=== PATIENT | male | born 1975 | race Hispanic/Latino ===

== ENCOUNTER 2018-07-22 11:45 | Emergency (ER) | payer OTHER ==
[2018-07-22 11:59] VITALS: RESP 20; BMI 33.1
[2018-07-22] MEDS ORDERED: Sodium Chloride 0.9% 1,000 ML IV STA (12:36)
[2018-07-22] MEDS ORDERED: Iohexol 240 (50 ml) PO ONE (12:36)
--- NOTE | 2018-07-22 12:47 | ED PDOC ---
HPI: Abdomen Time Seen by Provider: 07/22/18 12:24 Chief Complaint (Provider): abdominal pain History Per: Patient History/Exam Limitations: no limitations Onset/Duration Of Symptoms: Days (3), Gradual Current Symptoms Are (Timing): Still Present Location Of Pain/Discomfort: LLQ Quality Of Discomfort: Sharp Associated Symptoms: Nausea, Loss Of Appetite, Constipation. denies: Vomiting Exacerbating Factors: None Alleviating Factors: None Additional Complaint(s): 43yo male c/o LLQ pain for several days, sharp, worsening, feels "bloated" and had recent change in bowel habits w constipation after domestic travel. Also taking amoxicillin for sinus infection. Denies fever, vomiting, blood in stool or weakness. No prior hx of similar pain. Past Medical History Reviewed: Historical Data, Nursing Documentation, Vital Signs Vital Signs: Last Vital Signs Temp 97 F L 07/22/18 11:58 Pulse 81 07/22/18 11:58 Resp 20 07/22/18 11:58 BP 120/81 07/22/18 11:58 Pulse Ox 97 07/22/18 11:58 - Medical History PMH: Depression - Surgical History Surgical History: No Surg Hx - Family History Family History: States: Other Other Family History: father w diverticulitis - Social History Current smoker - smoking cessation education provided: No - Home Medications Home Medications: Ambulatory Orders Medication Instructions Recorded Escitalopram [Lexapro] 20 mg PO DAILY 10/04/15 RX: Omeprazole [Prilosec] 40 mg PO DAILY 10/04/15 Zolpidem Tartrate [Ambien Cr] 12.5 mg PO PRN PRN 10/04/15 busPIRone [Buspar] 10 mg PO TID 10/04/15 Oxycodone HCl/Acetaminophen 1 each PO Q6 PRN #15 tablet 10/05/15 [Percocet 5-325 mg Tablet] Sulfamethoxazole/Trimethoprim 1 tab PO BID #19 tab 10/05/15 [Bactrim DS 800 mg-160 mg] Docusate [Colace] 100 mg PO BID PRN #20 cap 07/22/18 RX: Ibuprofen [Motrin Tab] 600 mg PO Q6 PRN #15 tab 07/22/18 RX: Magnesium Citrate [Citrate of 50 ml PO BID PRN #1 bottle 07/22/18 Mag] - Allergies Allergies/Adverse Reactions: Allergies Allergy/AdvReac Type Severity Reaction Status Date / Time No Known Allergies Allergy Verified 06/06/14 23:02 Review of Systems Constitutional: Negative for: Fever, Chills Cardiovascular: Negative for: Chest Pain, Palpitations Respiratory: Negative for: Cough, Shortness of Breath Gastrointestinal: Positive for: Abdominal Pain, Constipation. Negative for: Vomiting, Diarrhea, Melena, Hematochezia, Hematemesis Genitourinary Male: Negative for: Dysuria Musculoskeletal: Negative for: Neck Pain, Back Pain Skin: Negative for: Rash, Lesions, Jaundice Neurological: Negative for: Weakness, Numbness Psych: Negative for: Suicidal ideation Physical Exam - Reviewed Nursing Documentation Reviewed: Yes Vital Signs Reviewed: Yes - Physical Exam Appears: Positive for: Well, Non-toxic, No Acute Distress Head Exam: Positive for: ATRAUMATIC, NORMAL INSPECTION, NORMOCEPHALIC Skin: Positive for: Normal Color, Warm, DRY Eye Exam: Positive for: EOMI, Normal appearance, PERRL ENT: Positive for: Normal ENT Inspection Neck: Positive for: Normal, Painless ROM Cardiovascular/Chest: Positive for: Regular Rate, Rhythm Respiratory: Positive for: CNT, Normal Breath Sounds Pulses-Radial (L): 3+/4+ Pulses-Radial (R): 3+/4+ Gastrointestinal/Abdominal: Positive for: Soft, Tenderness (LLQ tenderness), Other (small umbilical hernia nontender). Negative for: Guarding, Rebound, Hernia, Asicites Back: Positive for: Normal Inspection Extremity: Positive for: Normal ROM Neurologic/Psych: Positive for: Alert, Oriented - Laboratory Results Result Diagrams: 07/22/18 13:10 07/22/18 13:10 - ECG O2 Sat by Pulse Oximetry: 97 Medical Decision Making Medical Decision Making: workup for LLQ abd pain w labs, CT abd pelv r/o diverticulitis, mass, volvulus, vs other labs reviewed and reveal no clinically significant abnormalities CT abd pelv report reviewed, radiologist states epiploic appendigitis, results discussed and Rx for pain and constipation prescribed and need for followup PMD/GI discussed. Disposition - Clinical Impression Clinical Impression: Epiploic appendagitis, Constipation, Abdominal discomfort - Patient ED Disposition Is Patient to be Admitted: No Counseled Patient/Family Regarding: Studies Performed, Diagnosis, Need For Followup, Rx Given - Disposition Referrals: Wilver Monteiro MD [Staff Provider] - Disposition: Routine/Home Disposition Time: 17:00 Condition: STABLE Additional Instructions: Followup with GI doctor if symptoms persist, you will then need further testing. Recommend motrin for pain, use constipation medication as needed. Prescriptions: Docusate [Colace] 100 mg PO BID PRN #20 cap PRN Reason: Constipation RX: Ibuprofen [Motrin Tab] 600 mg PO Q6 PRN #15 tab PRN Reason: Pain, Moderate (4-7) RX: Magnesium Citrate [Citrate of Mag] 50 ml PO BID PRN #1 bottle PRN Reason: Constipation Instructions: Acute Abdomen (Belly Pain) Forms: [facility] (Vietnamese)
[2018-07-22] MEDS ORDERED: Iohexol 240 (50 ml) ONE (12:57)
[2018-07-22 13:27] LABS: BASO % 0.7 % (0.0-2.0); EOS # 0.1 K/uL (0.0-0.7); EOS % 1.4 % (0.0-4.0); HEMOGLOBIN 15.5 g/dL (12.0-18.0); LYMPH # 1.2 K/uL (1.0-4.3); LYMPH % 19.7 % (20.0-40.0); MEAN CELL VOLUME 90.8 fl (80.0-94.0); MEAN CORPUSCULAR HEMOGLOBIN 31.4 pg (27.0-31.0); MEAN CORPUSCULAR HGB CONC 34.6 g/dL (33.0-37.0); MEAN PLATELET VOLUME 7.9 fl (7.2-11.7); MONO # 0.7 K/uL (0.0-0.8); MONO % 11.1 % (0.0-10.0); NEUT # 4.2 K/uL (1.8-7.0); NEUT % 67.1 % (50.0-75.0); NRBC % 0.1 % (0.0-0.0); RBC 4.92 Mil/uL (4.40-5.90); RED CELL DISTRIBUTION WIDTH 13.2 % (11.5-14.5); WHITE BLOOD COUNT 6.3 K/uL (4.8-10.8)
[2018-07-22 13:33] LABS: ALB/GLOB RATIO 1.4 (1.0-2.1); ALBUMIN 4.5 g/dL (3.5-5.0); ALT/SGPT 41 U/L (21-72); AST/SGOT 35 U/L (17-59); BLOOD UREA NITROGEN 16 mg/dl (9-20); CALCIUM 9.3 mg/dL (8.4-10.2); GFR NON-AFRICAN AMERICAN > 60; LIPASE 139 U/L (23-300)
[2018-07-22] MEDS ORDERED: Iohexol 300 100 ML IJ ONE (15:48)
[2018-07-22] MEDS ORDERED: Sodium Chloride 0.9% 50 ML IV ONE (15:49)
--- NOTE | 2018-07-22 16:35 | CT ---
Date of service: 07/22/2018 PROCEDURE: CT Abdomen and Pelvis with contrast HISTORY: LLQ pain, constipation COMPARISON: 10/04/2015 TECHNIQUE: Contrast dose: 95 mL Omnipaque 300 Radiation dose: Total exam DLP = 867.32 mGy-cm. This CT exam was performed using one or more of the following dose reduction techniques: Automated exposure control, adjustment of the mA and/or kV according to patient size, and/or use of iterative reconstruction technique. FINDINGS: LOWER THORAX: Unremarkable. LIVER: Unremarkable. No gross lesion or ductal dilatation. GALLBLADDER AND BILE DUCTS: Unremarkable. PANCREAS: Unremarkable. No gross lesion or ductal dilatation. SPLEEN: The spleen is enlarged, measuring 18.0 cm in greatest dimension ADRENALS: Unremarkable. No mass. KIDNEYS AND URETERS: Unremarkable. No hydronephrosis. No solid mass. VASCULATURE: Unremarkable. No aortic aneurysm. No aortic atherosclerotic calcification or mural plaque present. BOWEL: No bowel obstruction. Adjacent to the mid descending colon there is a rounded structure with central radiolucency and a central dot of high attenuation, surrounded by fat stranding. This is consistent with epiploic appendagitis and is a pathognomonic appearance. There is no other abnormal bowel identified. APPENDIX: Normal appendix. PERITONEUM: No ascites. There is an umbilical hernia containing a nonobstructed loop of small bowel as well as mesenteric fat. There is no pneumoperitoneum. LYMPH NODES: Unremarkable. No enlarged lymph nodes. BLADDER: Unremarkable. REPRODUCTIVE: Normal prostate BONES: No acute fracture. OTHER FINDINGS: None. IMPRESSION: Findings consistent with epiploic appendagitis of the mid descending colon. Splenomegaly. Umbilical hernia containing a nonobstructed loop of small bowel.
[2018-07-22 20:15] VITALS: BP 132/64; PULSE 88; TEMP 97.9
[2018-07-23 07:48] VITALS: O2SAT 97
== END 2018-07-22 17:15 | disposition home or self-care (01) ==
LOC: H.ER 11:45
DX: K59.00 Constipation, unspecified (principal); K65.9 Peritonitis, unspecified; R10.32 Left lower quadrant pain; K42.9 Umbilical hernia without obstruction or gangrene
CPT/HCPCS: 74177; 80053; 83690; 85025; 96374; 99283; J1885; J7030; Q9966; Q9967

== ENCOUNTER 2019-01-09 09:11 | Emergency (ER) | payer OTHER ==
[2019-01-09 09:17] VITALS: BP 123/81; PULSE 77; RESP 18; TEMP 97.1; O2SAT 98
[2019-01-09 09:18] VITALS: BMI 31.3
--- NOTE | 2019-01-09 09:52 | ED PDOC ---
HPI: General Adult Time Seen by Provider: 01/09/19 09:31 Chief Complaint (Nursing): Abnormal Skin Integrity Chief Complaint (Provider): Abnormal Skin Integrity History Per: Patient History/Exam Limitations: no limitations Onset/Duration Of Symptoms: Days (3) Additional Complaint(s): 43 y/o male presents to the ED due to a worsening abscess to the left buttock. Patient states he gets them every few years then has to be drained. He reports occasionally when he gets them it resolves on its own. He states it has been 3 days using warm compress and Motrin with no improvement. Patient reports to page is his daughter obed and would like to feel better by then. Patient denies any other complaints at this time. PMD: Osmar Gomez Past Medical History Reviewed: Historical Data, Nursing Documentation, Vital Signs Vital Signs: Last Vital Signs Temp 97.1 F L 01/09/19 09:16 Pulse 77 01/09/19 09:16 Resp 18 01/09/19 09:16 BP 123/81 01/09/19 09:16 Pulse Ox 98 01/09/19 09:16 Primary Care Provider: Osmar Mejia - Medical History PMH: Depression - Family History Family History: States: Unknown Family Hx - Home Medications Home Medications: Ambulatory Orders Medication Instructions Recorded Escitalopram [Lexapro] 20 mg PO DAILY 10/04/15 Omeprazole [Prilosec] 40 mg PO DAILY 10/04/15 Zolpidem Tartrate [Ambien Cr] 12.5 mg PO PRN PRN 10/04/15 busPIRone [Buspar] 10 mg PO TID 10/04/15 Oxycodone HCl/Acetaminophen 1 each PO Q6 PRN #15 tablet 10/05/15 [Percocet 5-325 mg Tablet] Sulfamethoxazole/Trimethoprim 1 tab PO BID #19 tab 10/05/15 [Bactrim DS 800 mg-160 mg] Docusate [Colace] 100 mg PO BID PRN #20 cap 07/22/18 Ibuprofen [Motrin Tab] 600 mg PO Q6 PRN #15 tab 07/22/18 Magnesium Citrate [Citrate of Mag] 50 ml PO BID PRN #1 bottle 07/22/18 Acetaminophen/Oxycodone Hydr 1 tab PO Q4H #12 tab 01/09/19 [Percocet 10/325 mg Tab] Cephalexin [Keflex] 500 mg PO Q6 #40 capsule 01/09/19 - Allergies Allergies/Adverse Reactions: Allergies Allergy/AdvReac Type Severity Reaction Status Date / Time No Known Allergies Allergy Verified 01/09/19 09:22 Review of Systems ROS Statement: Except As Marked, All Systems Reviewed And Found Negative Skin: Positive for: Other (Abscess to the left buttock.) Physical Exam - Reviewed Nursing Documentation Reviewed: Yes Vital Signs Reviewed: Yes - Physical Exam Appears: Positive for: Well, Non-toxic, No Acute Distress Head Exam: Positive for: ATRAUMATIC, NORMAL INSPECTION, NORMOCEPHALIC Skin: Positive for: Normal Color (2cm x 1cm abscess without Fluctuent. Mild erythema, no drainage. ), Warm, Dry Eye Exam: Positive for: EOMI, Normal appearance, PERRL ENT: Positive for: Normal ENT Inspection Neck: Positive for: Normal, Painless ROM Cardiovascular/Chest: Positive for: Regular Rate, Rhythm. Negative for: Murmur Respiratory: Positive for: Normal Breath Sounds. Negative for: Wheezing Gastrointestinal/Abdominal: Positive for: Normal Exam, Soft. Negative for: Tenderness Back: Positive for: Normal Inspection. Negative for: L CVA Tenderness, R CVA Tenderness Extremity: Positive for: Normal ROM Neurological/Psych: Positive for: Awake, Alert, Normal Tone, Oriented (x3). Negative for: Motor/Sensory Deficits - ECG O2 Sat by Pulse Oximetry: 98 Medical Decision Making Medical Decision Making: Time: 954 Initial Impression: Cellulitis/abscess with no indication of draining at this time. Will give patient pain medication and antibiotics. Scribe Attestation: Documented by Lenora Caraballo, acting as a scribe for Ximena Bustamante Provider Scribe Attestation: All medical record entries made by the Scribe were at my direction and personally dictated by me. I have reviewed the chart and agree that the record accurately reflects my personal performance of the history, physical exam, medical decision making, and the department course for this patient. I have also personally directed, reviewed, and agree with the discharge instructions and disposition. Disposition - Clinical Impression Clinical Impression: Abscess, Abscess, gluteal, left - Disposition Disposition: Routine/Home Disposition Time: 09:45 Condition: STABLE Additional Instructions: Follow up with primary medical doctor in 3 to 5 days. Take Motrin for moderate pain. Take Percocet only for severe pain as it has a high potential for addiction. Percocet may make you drowsy so do not drive or perform dangerous activities if you have taken Percocet. Return to the emergency department if the abscess worsens or if you develop fever or other new symptoms. Prescriptions: Acetaminophen/Oxycodone Hydr [Percocet 10/325 mg Tab] 1 tab PO Q4H #12 tab Cephalexin [Keflex] 500 mg PO Q6 #40 capsule Instructions: Skin Abscess Forms: [facility] (Welsh) Print Language: IRISH
== END 2019-01-09 10:16 | disposition home or self-care (01) ==
LOC: H.ER 09:11
DX: L02.31 Cutaneous abscess of buttock (principal); Z86.59 Personal history of other mental and behavioral disorders

== ENCOUNTER 2019-01-12 07:57 | Emergency (ER) | payer OTHER ==
[2019-01-12 07:57] VITALS: BMI 31.3
--- NOTE | 2019-01-12 08:28 | ED PDOC ---
HPI: General Adult Time Seen by Provider: 01/12/19 08:08 Additional Complaint(s): 44 y/o M with NO PMHx presents to ED c/o chills, sweating and worsening L gluteal pain. Pt reports having a R gluteal abscess that was noticed 8 days ago, progressively increasing in size and becoming more painful. Pt was seen at this ED 3 days ago, was discharged with PO Keflex and Percocet with NO improvement. --Pt reports having this abscess 16 years ago, I&D was performed with resolution of symptoms at that time. Since then he has had recurrent episode a few times. Last one was 6 months ago and previous to that 3 years ago, both resolved with PO medications. PMD: Dr Yaritza GOEL Meds: currently PO Keflex and PO Percocet PMHx: denied PSHx: denied FHx: NC SHx: No rec drugs. Occasional alcohol and no smoking. Past Medical History Vital Signs: Last Vital Signs Temp 98.9 F 01/12/19 08:02 Pulse 93 H 01/12/19 08:02 Resp 18 01/12/19 08:02 BP 109/73 01/12/19 08:02 Pulse Ox 95 01/12/19 08:02 Primary Care Provider: FAMILY PROVIDER,NO - Medical History PMH: Anxiety, Depression - Family History Family History: States: Unknown Family Hx - Home Medications Home Medications: Ambulatory Orders Medication Instructions Recorded Escitalopram [Lexapro] 20 mg PO DAILY 10/04/15 Omeprazole [Prilosec] 40 mg PO DAILY 10/04/15 Zolpidem Tartrate [Ambien Cr] 12.5 mg PO PRN PRN 10/04/15 busPIRone [Buspar] 10 mg PO TID 10/04/15 Oxycodone HCl/Acetaminophen 1 each PO Q6 PRN #15 tablet 10/05/15 [Percocet 5-325 mg Tablet] Sulfamethoxazole/Trimethoprim 1 tab PO BID #19 tab 10/05/15 [Bactrim DS 800 mg-160 mg] Docusate [Colace] 100 mg PO BID PRN #20 cap 07/22/18 Ibuprofen [Motrin Tab] 600 mg PO Q6 PRN #15 tab 07/22/18 Magnesium Citrate [Citrate of Mag] 50 ml PO BID PRN #1 bottle 07/22/18 Acetaminophen/Oxycodone Hydr 1 tab PO Q4H #12 tab 01/09/19 [Percocet 10/325 mg Tab] Cephalexin [Keflex] 500 mg PO Q6 #40 capsule 01/09/19 Amoxicillin/Clavulanate [Augmentin 1 tab PO BID #20 tab 01/12/19 875 MG-125 MG] Naproxen [Naprosyn] 500 mg PO BID PRN #15 tablet 01/12/19 oxyCODONE/Acetaminophen [Percocet 1 tab PO Q6 PRN #15 tab 01/12/19 5/325 mg Tab] - Allergies Allergies/Adverse Reactions: Allergies Allergy/AdvReac Type Severity Reaction Status Date / Time No Known Allergies Allergy Verified 01/09/19 09:22 Review of Systems Constitutional: Positive for: Chills, Sweats. Negative for: Fever ENT: Negative for: Ear Pain, Ear Discharge, Nose Pain Cardiovascular: Negative for: Chest Pain, Palpitations, Orthopnea Respiratory: Negative for: Cough, Shortness of Breath, Hemoptysis Gastrointestinal: Negative for: Nausea, Vomiting, Abdominal Pain, Diarrhea Genitourinary Male: Negative for: Dysuria, Frequency Musculoskeletal: Negative for: Neck Pain, Back Pain Skin: Positive for: Rash, Lesions (R gluteal swelling ) Neurological: Negative for: Weakness, Incoordination Physical Exam - Physical Exam Appears: Positive for: Uncomfortable Head Exam: Positive for: ATRAUMATIC, NORMAL INSPECTION Eye Exam: Positive for: Normal appearance, EOMI ENT: Positive for: Normal ENT Inspection Neck: Positive for: Normal, Painless ROM, Supple Cardiovascular/Chest: Positive for: Regular Rate, Rhythm Respiratory: Positive for: Normal Breath Sounds Gastrointestinal/Abdominal: Positive for: Bowel Sounds (normoactive), Soft. Negative for: Tenderness, Organomegaly, Distended, Guarding Male Genital Exam: Positive for: other (Mrs Manjula. Left anterior medial gluteus: presence of ~13cm cincumference redness with induration, fluctuance anetior area. ) Neurological/Psych: Positive for: Awake, Alert, Normal Tone, Oriented - Laboratory Results Result Diagrams: 01/12/19 08:45 01/12/19 08:45 - ECG O2 Sat by Pulse Oximetry: 95 Medical Decision Making Medical Decision Making: At 08:00 --CT Pelvis ordered --CBC, CMP, blood culture, urine culture and wound culture ordered. --IV Vancomycin and iV Morphine ordered. At 12:30 --Radiologist reported L gluteal close to anal area. --Pt educated and counsled on the need for drainage of abscess. At 13:45 --After obtaining medical consent. I&D was attempted with NO success. --Another dose of IV Morphine ordered. --Will consult General surgery for further evaluation. At 15:25 --General Surgery already evaluated patient, successfully attempted I&D with significant amount of purulent and serosanguineous fluid draining. --Wound culture ordered. Sample obtained. --As per Gen Surg, 10 days of Augmentin was recommended --Pt stable, tolerating PO, will be discharge home. Pt has to F/U with Dr Clark on Saturday01/16/19. --Rx for Augmentin x 10 days, Percocet x 5 days and Naproxen x7 days. Disposition - Clinical Impression Clinical Impression: Abscess of anal and rectal regions - Patient ED Disposition Is Patient to be Admitted: No - Disposition Referrals: Andrea Clark MD [Staff Provider] - Disposition: Routine/Home Disposition Time: 15:32 Condition: IMPROVED Additional Instructions: FOLLOW-UP WITH DR. CLARK ON SATURDAY (01/16/19) ADVISED. Prescriptions: Amoxicillin/Clavulanate [Augmentin 875 MG-125 MG] 1 tab PO BID #20 tab Naproxen [Naprosyn] 500 mg PO BID PRN #15 tablet PRN Reason: Pain, Moderate (4-7) oxyCODONE/Acetaminophen [Percocet 5/325 mg Tab] 1 tab PO Q6 PRN #15 tab PRN Reason: Pain, Moderate (4-7) Instructions: Anal Abscess and Fistula (DC), Opioids for Short-Term Treatment of Pain, Abscess Drainage, Percutaneous (DC) Forms: [facility] (French)
[2019-01-12] MEDS ORDERED: Vancomycin 1 g Inj ONE (08:40)
[2019-01-12 09:02] LABS: BASO % 0.6 % (0.0-2.0); EOS # 0.1 K/uL (0.0-0.7); EOS % 1.3 % (0.0-4.0); HEMOGLOBIN 13.9 g/dL (12.0-18.0); LYMPH % 13.4 % (20.0-40.0); MEAN CELL VOLUME 87.7 fl (80.0-94.0); MEAN CORPUSCULAR HEMOGLOBIN 30.9 pg (27.0-31.0); MEAN CORPUSCULAR HGB CONC 35.2 g/dL (33.0-37.0); MEAN PLATELET VOLUME 7.7 fl (7.2-11.7); MONO # 0.9 K/uL (0.0-0.8); MONO % 11.7 % (0.0-10.0); NEUT # 5.7 K/uL (1.8-7.0); NRBC % 0.1 % (0.0-0.0); RBC 4.52 Mil/uL (4.40-5.90); RED CELL DISTRIBUTION WIDTH 13.1 % (11.5-14.5); WHITE BLOOD COUNT 7.8 K/uL (4.8-10.8)
[2019-01-12 09:17] LABS: ALB/GLOB RATIO 1.4 (1.0-2.1); ALBUMIN 4.2 g/dL (3.5-5.0); ALT/SGPT 33 U/L (21-72); AST/SGOT 30 U/L (17-59); BLOOD UREA NITROGEN 13 mg/dl (9-20); CALCIUM 8.6 mg/dL (8.4-10.2); GFR NON-AFRICAN AMERICAN > 60
[2019-01-12 09:28] LABS: INR 1.2; PROTHROMBIN TIME 13.6 Seconds (9.8-13.1)
[2019-01-12 09:30] LABS: PARTIAL THROMBOPLASTIN TIME 34.4 Seconds (25.6-37.1)
[2019-01-12] MEDS ORDERED: Iohexol 300 100 ML IJ ONE (10:08)
[2019-01-12] MEDS ORDERED: Sodium Chloride 0.9% 50 ML IV ONE (10:08)
[2019-01-12 11:58] VITALS: RESP 19
--- NOTE | 2019-01-12 12:47 | CT ---
Date of service: 01/12/2019 PROCEDURE: CT Pelvis with contrast HISTORY: Christina-anal abscess COMPARISON: Abdomen and pelvis CT with contrast 07/22/2018. TECHNIQUE: Following the intravenous administration of iodinated contrast material, a CT examination of the pelvis was performed from the crests to the symphysis pubis with reformatted datasets provided in axial, sagittal and coronal planes. Oral contrast was not administered as per referring physician request. Contrast dose: Omnipaque 300, 95 cc Radiation dose: Total exam DLP = 788.78 mGy-cm. This CT exam was performed using one or more of the following dose reduction techniques: Automated exposure control, adjustment of the mA and/or kV according to patient size, and/or use of iterative reconstruction technique. FINDINGS: BLADDER: Unremarkable. No mass. REPRODUCTIVE ORGANS: Unremarkable. VISUALIZED BOWEL: Unremarkable. PERITONEUM: Unremarkable, as visualized. No free fluid. No free air. LYMPH NODES: Unremarkable. No enlarged lymph nodes. VASCULATURE: No aortic atherosclerotic calcification or mural plaque present. BONES: No fracture or focal lesion. OTHER FINDINGS: Immediately distal to the inferior margins of the left perianal space at the medial left buttocks area of low-density measure 1.6 x 2.8 cm x 4.1 cm with surrounding reactive changes. Prominent dermal thickening and subcutaneous reaction is seen in the dependent left buttocks medially. No emphysematous changes are identified. Peripheral enhancement is appreciated with this low-density area suggestive of a small abscess. IMPRESSION: Findings most compatible with a small medial left buttocks subcutaneous abscess measuring 2.8 cm greatest dimension. Examination otherwise appears unremarkable. The epicenter of the abscess appears away from anus with only the superior edge of subcutaneous and dermal reaction abutting the inferior left perianal space. Findings discussed with Dr. Crespo with written down and read back verification 01/12/2019 11:10 a.m..
[2019-01-12] MEDS ORDERED: Lidocaine 1% Inj (20ml) IJ ONE (13:23)
[2019-01-12] MEDS ORDERED: Lidocaine Hydrochloride 1% 10 ML ONE (13:26)
--- NOTE | 2019-01-12 15:30 | CP.PCM.CON ---
<Owen Sexton - Last Filed: 01/12/19 15:25> History of Present Illness - History of Present Illness History of Present Illness: Surgery Consult Note. Dr. Clark 44yo M with no significant PMHx here for evaluation of perirectal pain. Patient states that he has been having a left gluteal abscess which was drained 16 years ago. He states that, over the past, he has had symptoms of pain off and on with spontaneous drainage. Currently, he reports pain which has been getting worse over the past 3 days. Denies any fevers or chills. No spontaneous drainage. No N/V/D. No Abd pain. No urinary complaints. Denies constipation. No melena. No hematochezia. PMHx: Denies PSHx: Denies Family Hx: non-contributory Social Hx: Denies Tobacco use. Denies ETOH use. Denies illicit drugs NKDA Review of Systems - Review of Systems All systems: reviewed and no additional remarkable complaints except - Constitutional Constitutional: absent: Chills, Fever Past Patient History - Infectious Disease Hx of Infectious Diseases: None - Past Medical History & Family History Past Medical History?: No Past Family History: Reviewed and not pertinent - Past Social History Smoking Status: Former Smoker Alcohol: None Drugs: Denies - CARDIAC Hx Cardiac Disorders: Yes Other/Comment: hx of myocarditis - PULMONARY Hx Respiratory Disorders: No - NEUROLOGICAL Hx Neurological Disorder: No - GASTROINTESTINAL Hx Gastrointestinal Disorders: Yes Hx Gastroesophageal Reflux: Yes - PSYCHIATRIC Hx Anxiety: Yes Hx Depression: Yes - SURGICAL HISTORY Hx Surgeries: No - ANESTHESIA Hx Anesthesia: No Meds Home Medications: Home Medication List Medication Instructions Recorded Confirmed Type Amoxicillin/Clavulanate [Augmentin 1 tab PO BID #20 tab 01/12/19 Rx 875 MG-125 MG] Naproxen [Naprosyn] 500 mg PO BID PRN #15 tablet 01/12/19 Rx oxyCODONE/Acetaminophen [Percocet 1 tab PO Q6 PRN #15 tab 01/12/19 Rx 5/325 mg Tab] Allergies/Adverse Reactions: Allergies Allergy/AdvReac Type Severity Reaction Status Date / Time No Known Allergies Allergy Verified 01/09/19 09:22 Physical Exam - Constitutional Appears: Well, Non-toxic, No Acute Distress - Head Exam Head Exam: ATRAUMATIC, NORMAL INSPECTION, NORMOCEPHALIC - Eye Exam Eye Exam: EOMI, Normal appearance. absent: Scleral icterus - ENT Exam ENT Exam: Mucous Membranes Moist, Normal Exam - Cardiovascular Exam Cardiovascular Exam: absent: JVD, RRR - GI/Abdominal Exam GI & Abdominal Exam: Hernia (Small reducible umbilical hernia), Soft. absent: Distended, Firm, Guarding, Tenderness - Rectal Exam Additional comments: Left gluteal abscess, approximately 3 cm from anal verge. Area of fluctuance and induration. Tenderness to palpation. No Active drainage note. 2 stab incisions lateral to the abscess noted. - Extremities Exam Extremities exam: Positive for: normal inspection. Negative for: calf tenderness - Neurological Exam Neurological exam: Alert, Oriented x3 - Psychiatric Exam Psychiatric exam: Normal Affect, Normal Mood Results - Vital Signs Recent Vital Signs: Last Vital Signs Temp 98.9 F 01/12/19 11:57 Pulse 78 01/12/19 11:57 Resp 19 01/12/19 11:57 BP 98/56 L 01/12/19 11:57 Pulse Ox 95 01/12/19 14:59 - Labs Result Diagrams: 01/12/19 08:45 01/12/19 08:45 Labs: Laboratory Results - last 24 hr 01/12/19 01/12/19 01/12/19 08:45 08:45 08:45 WBC 7.8 RBC 4.52 Hgb 13.9 Hct 39.6 MCV 87.7 D MCH 30.9 MCHC 35.2 RDW 13.1 Plt Count 205 MPV 7.7 Neut % (Auto) 73.0 Lymph % (Auto) 13.4 L Dare % (Auto) 11.7 H Eos % (Auto) 1.3 Baso % (Auto) 0.6 Neut # (Auto) 5.7 Lymph # (Auto) 1.0 Dare # (Auto) 0.9 H Eos # (Auto) 0.1 Baso # (Auto) 0.0 PT 13.6 H INR 1.2 APTT 34.4 Sodium 134 Potassium 4.0 Chloride 97 L Carbon Dioxide 29 Anion Gap 12 BUN 13 Creatinine 1.0 Est GFR ( Amer) > 60 Est GFR (Non-Af Amer) > 60 Random Glucose 106 Calcium 8.6 Total Bilirubin 0.8 AST 30 ALT 33 Alkaline Phosphatase 70 Total Protein 7.3 Albumin 4.2 Globulin 3.1 Albumin/Globulin Ratio 1.4 Assessment & Plan - Assessment and Plan (Free Text) Assessment: 44yo M with Left gluteal abscess. Plan: - Will perform bedside I&D of gluteal abscess - Patient may be discharged after procedure - Augmentin x 10 days - Percocet for pain control - Keep area clean and dry - Packing out in 01/14/19 - Follow up with Dr. Clark in office on 01/16/19 call for appointment. - Dr. Clark present during the entire patient encounter - Plan discussed and agreed Further recs as per Dr. Amber Sexton PGY2 surgery <Andrea Clark - Last Filed: 01/13/19 12:16> History of Present Illness - History of Present Illness History of Present Illness: Patient was seen and examined at the bedside in Emergency department with resident. Agree with resident's note above. Results - Vital Signs Recent Vital Signs: Last Vital Signs Temp 98.3 F 01/12/19 16:34 Pulse 82 01/12/19 16:34 Resp 19 01/12/19 16:34 BP 110/63 01/12/19 16:34 Pulse Ox 98 01/12/19 16:34 - Labs Result Diagrams: 01/12/19 08:45 01/12/19 08:45 - Imaging and Cardiology CT scan - pelvis Status: Image reviewed by me, Report reviewed by me
--- NOTE | 2019-01-12 15:42 | PCM.SURG1 ---
Surgeon's Initial Post Op Note - Surgeon's Notes Surgeon: Dr. Clark Range Mechanic: Darshan HE Type of Anesthesia: Local Anesthesia Administered By: Dr. Sexton PGY2. Approx 8cc of 1% lidocaine Pre-Operative Diagnosis: Left Gluteal abscess Operative Findings: Written consent obtained and on chart. Patinet placed prone. Left gluteal abscess area prepped with betadine and drapped. Approximately 8cc of 15 Lidocaine was used for local anesthesia. Incision was made approximated 1.5cm using a #11 blade. Approximately 8-10cc of purulent material expressed. Wound culture obtained and sent to lab for analysis. Small savannah was used to explore the abscess cavity and break up any loculations. The Abscess cavity was thoroughly irrigated with saline. 1/4in plain packing was used, and clean sterile gauze was used for dressing. Patient tolerated procedure well. No immediate post-procedrue complications noted. Post-Operative Diagnosis: same Operation Performed: Incision and Drainage of Left gluteal abscess Specimen/Specimens Removed: Wound culture, left gluteal abscess Estimated Blood Loss: EBL {In ML}: 10 Blood Products Given: N/A Drains Used: No Drains Post-Op Condition: Good Date of Surgery/Procedure: 01/12/19 Time of Surgery/Procedure: 15:43
[2019-01-12 16:34] VITALS: BP 110/63; PULSE 82; TEMP 98.3; O2SAT 98
== END 2019-01-12 16:35 | disposition home or self-care (01) ==
LOC: H.ER 07:57 → SUPCPDRO 07:57 → H.ER 16:35
DX: K61.0 Anal abscess (principal)
CPT/HCPCS: 72193; 80053; 85025; 85610; 85730; 87040; 87070; 87081; 87086; 87181; 96374; 99282; J2270; J3370; J7040; Q9967